=== PATIENT | female | born 1935 | race Caucasian/White ===

== ENCOUNTER 2016-07-20 01:55 | Observation (INO) | payer MEDICARE ==
--- NOTE | ~2016-07-20 | DS ---
Discharge Summary [facility] [address] [place]. [address] NAME: BILLY MEAD : 31 STATUS : DIS Shaheed PAT#: [id number] AGE: 81 ADM/REG DATE : 07/20/16 MR#: [id number] REPORT SERV DATE: 07/21/16 DICTATED BY: MERE THORNTON DATE: 07/20/16 REPORT STATUS : Draft TRANSCRIBED BY: MODL DATE: 07/20/16 ADMISSION DATE: 07/20/2016 DISCHARGE DATE: 07/20/2016 DISCHARGE DIAGNOSES: 1. Medication overdose with Ambien and Phenergan. 2. Depression and anxiety. 3. Opioid dependence for chronic back pain. 4. Denies any suicide ideation or plans. HISTORY OF PRESENT ILLNESS: This is an 81-year-old female patient, who has a caregiver at home and then the family support at home. She was brought to the hospital with extreme somnolence after they found her extra Ambien was gone. Please see dictated H and P. HOSPITAL COURSE: She was admitted to hospital with observation for the medication overdose. After the hydration, she came back to her normal. Her caregiver is here at the bedside and explained the patient that she was taking extra Ambien and Phenergan at the same time at home. Her medication is under care with the caregiver and family. They are trying to limit her Ambien use only daily after this time. Now, she is oriented x3. She is coherent, and there is no neurologic focal deficit. The patient will be discharged to home with continuing all her home medications, but Ambien is really as needed and Phenergan is replaced with Zofran. I explained the patient about this change of medication. Followup plan with Dr. Cristino Davey and they voiced understanding. DISPOSITION: The patient is discharged to home with a caregiver with a change of Phenergan to Zofran, but continuing other home medications including MS Contin and Cymbalta. EKL/ORIONL Mere Thornton M.D. / [id number] CC: Mehran Kang Jr, MD R. Henry Williams, M.D.
--- NOTE | ~2016-07-20 | HP ---
History And Physical [facility] [address] [place]. [address] NAME: BILLY MEAD : 31 STATUS : ADM Shaheed PAT#: [id number] AGE: 81 ADM/REG DATE : 07/20/16 MR#: [id number] REPORT SERV DATE: 07/20/16 DICTATED BY: HERIBERTO COHEN DATE: 07/20/16 REPORT STATUS : Draft TRANSCRIBED BY: MODL DATE: 07/20/16 DATE OF ADMISSION: 07/20/2016 CHIEF COMPLAINT: Altered mental status and somnolence. HISTORY OF PRESENT ILLNESS: This is an 81-year-old female with a history of depression and anxiety, who had recently lost her spouse who was found on her bed today very somnolent and hard to arouse and awake. Beside, she had an open bottle of Ambien as well as Phenergan and some of the pills were on the bed. She had apparently taken an unknown amount. The caregiver found her like this and called EMS who brought her to the emergency room at [facility]. In the emergency room, she continued to be very somnolent, although her vitals were stable. She was barely arousable with mumble replies. CT scan of the brain done in the emergency room did not show any acute intracranial abnormality. EKG was normal sinus at a rate of [address] elevations. Hospitalist Service is asked to admit the patient for further evaluation and management. At the time of my evaluation, she was more awake, but able to converse was oriented to time and person. She denied any chest pain, palpitations, or orthopnea. She had no cough, hemoptysis, night sweats, or weight loss. She has not had any recent falls or loss of consciousness. No history of recent fevers, chills, nausea, vomiting, and diarrhea. She had not had any hematemesis, hematochezia or hematuria. She denied any dysuria. No history of recent travel or exposures other than those mentioned above. PAST MEDICAL HISTORY: Significant for history of peptic ulcer disease, gastroesophageal reflux disease, history of postherpetic neuralgia, glaucoma, hypertension, depression, and anxiety. SOCIAL HISTORY: She does not smoke, drink, or use recreational drugs according to her. FAMILY HISTORY: Noncontributory. MEDICATIONS: At home are not available at this time. The caregiver will be returning home to bring her medicines with her. technical operations manager is waiting for a call back or for her to bring medicines. REVIEW OF SYSTEMS: As in history of present illness. All other systems were reviewed in detail and quite unremarkable. PHYSICAL EXAMINATION: GENERAL: This is a pleasant 81-year-old, not in any acute distress. HEENT: Her head is atraumatic, normocephalic. She is alert, awake, oriented to time, place, and person. Her pupils are equal, reacting to light and accommodating. External ocular muscles are intact. Membranes are moist and pink. Sclerae nonicteric. History And Physical [address] [address] NAME: BILLY MEAD : 33 STATUS : ADM Shaheed PAT#: [id number] AGE: 81 ADM/REG DATE : 07/20/16 MR#: [id number] REPORT SERV DATE: 07/20/16 DICTATED BY: HERIBERTO COHEN DATE: 07/20/16 REPORT STATUS : Draft TRANSCRIBED BY: HAYLEY DATE: 07/20/16 NECK: Supple with no jugular venous distention, lymphadenopathy, or thyromegaly. LUNGS: Clear to auscultation with no wheezes, rubs, or crackles. HEART: Heart sounds were regular with no murmurs, rubs, or gallops. ABDOMEN: Soft, nontender. Bowel sounds are present. There was no organomegaly. EXTREMITIES: Showed no cyanosis, clubbing, or edema. NEURO: At the time of my evaluation, she was grossly intact. She had some mild sluggishness, otherwise, she was recovering from her medication overdose rather well. Her vital signs today showed a temperature of 97.8, pulse 67, respirations 17 per minute, blood pressure was 149/74 oxygen saturations were 96% on 2 L of oxygen. LABORATORY DATA: Reviewed on the [employer] system showed normal CMP with a blood glucose of 95, calcium was 8.2. The rest of the chemistry looked normal as well. Serum drug screen was unremarkable. CBC was essentially within normal limits as well. Analysis did not reveal any gross abnormality. Urine drug screen was positive for cannabinoids and opiates today. Chest x-ray films and CT of the brain were reviewed by me on the PACS today and interpreted by me. Per my interpretation, there is increased vascular congestion in the chest x-ray without any lobar consolidations or pleural effusions. There is a spine hardware seen. CT of the brain did not reveal any acute intracranial abnormalities at this time. A 12-lead EKG done in emergency room was reviewed and interpreted by me. There is normal sinus rhythm with a rate of [address] elevations. There is right bundle- branch block. IMPRESSION: 1. Medication overdose. 2. Substance abuse. 3. Hypertension. 4. Depression and anxiety. 5. Peptic ulcer disease. 6. Gastroesophageal reflux disease. 7. Glaucoma. 8. History of postherpetic neuralgia. 9. Right bundle-branch block. PLAN: We will admit the patient to the Hospitalist Service with telemetry for close monitoring for a 24-hour observation period. Initially, we thought she might have to go to an intermediate care unit, but at the time of my evaluation, she has recovered, and more awake and alert. I think she would do well in telemetry bed. We will continue cardiac monitoring, repeat chemistries and CBCs in the morning, as well. We will replace any electrolytes that need to be replaced. As mentioned above, her caregiver will be going back to get her medication list, which we will review and continue. We will start her on IV fluids for maintenance. We will also consult Dr. Hicks our psychiatrist to evaluate her in the morning for depression. We will also place her on unfractionated heparin for DVT prophylaxis while here. When I brought up the urine drug screen result and told her she was positive for cannabinoids. The patient did agree or admit to using marijuana. She was reluctant to this, but also mention that she had last used it about a week ago. I have discussed the History And Physical [address] [place]. [address] NAME: BILLY MEAD : 31 STATUS : ADM Shaheed PAT#: [id number] AGE: 81 ADM/REG DATE : 07/20/16 MR#: [id number] REPORT SERV DATE: 07/20/16 DICTATED BY: HERIBERTO COHEN DATE: 07/20/16 REPORT STATUS : Draft TRANSCRIBED BY: MODL DATE: 07/20/16 above plans with the patient. She understands and agrees with the above plan. Hospitalist Service will be following her during her stay here. /HAYLEY Heriberto Cohen M.D. / [id number] CC: Mehran Kang Jr, MD
[~2016-07-20 01:55] MED LIST: ALLER-CHLOR4 MG OR; AMB5 PO; ANTIHISTAMINE OTC PO; ASAB PO; AUG875 PO; BIST PO; BLU EMU TOP; BLUE EMU TOP; CARASPUDL PO; CENTRUM TAB1 TAB PO; CHLOR-PHENIR4 MG PO; CHLOR-TRIMETON4 MG PO; CHLORPHEN4 MG PO; CRESTOR10 PO; CYANO1000T PO; CYMBALTA30; CYMBALTA30 PO; CYMBALTA60 PO; DIL2TAB PO; DSS PO; DULCOLAX PO; DURA50 TOP; GAS-X80 MG PO; HALF81 PO; I10 PO; I20 PO; INDERAL PO; K-TABS10 MEQ PO; KDUR10 PO; KLOR-CON 1010 MEQ PO; LIDODERM T; LIPITOR10 PO; LOP25 PO; LORTAB10 PO; LYRICA75 PO; MACROBID PO; MOBIC15 MG PO; MSCONT15 PO; MSCONTIN PO; MUCINEX D1 TAB OR; MUCINEX DM1 TAB PO; MUCINEX1200 MG PO; MULTIPLE VIT PO; MULTIVIT/MIN PO; MULTIVITAMI1 PO; MYLANTA GAS125 M1 PO; MYLANTA ULTR1 TAB PO; MYLUD PO; NEUR300 PO; NORCO1 TAB PO; OS500+D PO; P10 PO; P20 PO; P5 PO; PRILO PO; PRIN10 PO; PROTONIX PO; RESTASIS OPH; ROXICODONE15 MG PO; SENOKOT PO; SENOKOTS PO; SENTAB PO; SPIRO25 PO; T PO; TUMS PO; TUMSROLL; TUMSROLL PO; V5 PO; VITAMIN B-121000 MC1 SL; XALAT OPH; ZOFRAN4 PO; [UNRECOGNIZED DRUG - CODE] TOP; [UNRECOGNIZED DRUG - OTHER] OR
[2016-07-20 02:02] LABS: BASOPHILS 0.3 %; BASOPHILS ABSOLUTE 0.02 10/3/uL (0.0-0.16); EOSINOPHILS 4.4 %; EOSINOPHILS ABSOLUTE 0.27 10/3/uL (0.0-0.53); HEMATOCRIT 39.3 % (36.0-48.0); HEMOGLOBIN 12.9 g/dL (12.0-16.0); IMMATURE GRANULOCYTES 0.2 %; IMMATURE GRANULOCYTES ABSOLUTE 0.01 10/3/uL (0.0-0.11); LYMPHOCYTES 31.4 %; LYMPHOCYTES ABSOLUTE 1.91 10/3/uL (0.67-4.30); MANUAL DIFF NO %; MEAN CORPUS HGB CONC 32.8 g/dL (32.0-36.0); MEAN CORPUSCULAR HEMOGLOB 29.4 pg (26.0-34.0); MEAN CORPUSCULAR VOLUME 89.5 fL (80-100); MEAN PLATELET VOLUME 9.4 fL (9.2-13.0); MONOCYTES 12.3 %; MONOCYTES ABSOLUTE 0.75 10/3/uL (0.21-1.20); NEUTROPHILS 51.4 %; NEUTROPHILS ABSOLUTE 3.12 10/3/uL (2.02-8.40); PLATELET COUNT 236 10/3/uL (150-400); RBC DISTRIBUTION WIDTH 15.1 % (12.0-16.0); RED CELL COUNT 4.39 10/6/uL (4.0-5.6); WHITE BLOOD CELLS 6.1 10/3/uL (4.5-10.5)
[2016-07-20 02:18] LABS: ASCORBIC ACID (UR NOT ORDER) 40 (NEG); BILIRUBIN, URINE NEGATIVE (NEG); ER URINALYSIS TAT 0 Hrs 12 Mins; KETONE, URINE NEGATIVE (NEG); LEUKOCYTE ESTERASE(NOT OR NEG (NEG); NITRITE (URINE) NEG (NEG); WBC (NOT ORDERED) (RFLEX) < 1 (0-5)
[2016-07-20 02:24] LABS: ALKALINE PHOSPHATASE 103 U/L (45-117); CHLORIDE, SERUM 105 MMOL/L (96-112); CO2 (CARBON DIOXIDE) 24 MMOL/L (24-34); CREATININE 0.88 MG/DL (0.55-1.02); GFR AFRICAN AMERICAN 70 ML/MIN (>=60); GFR NON AFRICAN AMERICAN 61 ML/MIN (>=60); GLUCOSE, SERUM 95 MG/DL (60-99); POTASSIUM, SERUM 4.3 MMOL/L (3.5-5.3); SGPT(ALT) 15 U/L (5-65); SODIUM, SERUM 142 MMOL/L (135-148); TOTAL BILIRUBIN 0.4 MG/DL (0-1.2); TOTAL PROTEIN 7.1 G/DL (6.0-8.5)
[2016-07-20 02:26] LABS: A/G RATIO 0.7 (0.7-1.9); ACETAMINOPHEN LEVEL (TYLENOL) < 2.0 MCG/ML (10.0-20.0); ALCOHOL < 10 MG/DL (0); BUN (BLOOD UREA NITROGEN) 11 MG/DL (6-23); CALCIUM, SERUM 8.2 MG/DL (8.5-10.4); GLOBULIN 4.1 G/DL (2.5-4.1); SALICYLATE < 1.7 MG/DL (-); SGOT(AST) 21 U/L (5-40)
[2016-07-20 02:31] LABS: BAND NEUTROPHILS 2 %; BASOPHILS 1 %; BASOPHILS ABSOLUTE (CALC) 0.06 10/3/uL (0.0-0.16); EOSINOPHILS 6 %; EOSINOPHILS ABSOLUTE (CALC) 0.37 10/3/uL (0.0-0.53); ER DIFF TAT 0 Hrs 35 Mins; LYMPHOCYTES 30 %; LYMPHOCYTES ABSOLUTE (CALC) 1.83 10/3/uL (0.67-4.30); MONOCYTES 8 %; MONOCYTES ABSOLUTE (CALC) 0.49 10/3/uL (0.21-1.20); NEUTROPHILS ABSOLUTE (CALC) 3.36 10/3/uL (2.02-8.40); PLATELET ESTIMATE ADQ (ADEQUATE); RBC MORPHOLOGY NORM (NORMAL); SEGMENTED NEUTROPHIL (0) 53 %; TOTAL NUCLEATED CELLS 100
[2016-07-20 02:33] LABS: AMPHETAMINES (NOT ORD) NEG (NEG); BARBITURATES (NOT ORDERED NEG (NEG); BENZODIAZEPINES (NOT ORD) NEG (NEG); CANNABINOIDS (THC) POS (NEG); COCAINE (NOT ORDERED) NEG (NEG); OPIATES POS (NEG); PHENCYCLIDINE(PCP) NEG (NEG); TRICYCLICS NEG (NEG)
[2016-07-20] MEDS ORDERED: NEUR100 PO (04:41)
[2016-07-20] MEDS ORDERED: PR12.5 (04:43)
[2016-07-20 08:42] LABS: BASOPHILS 0.3 %; BASOPHILS ABSOLUTE 0.02 10/3/uL (0.0-0.16); EOSINOPHILS 4.5 %; HEMATOCRIT 38.5 % (36.0-48.0); HEMOGLOBIN 12.6 g/dL (12.0-16.0); IMMATURE GRANULOCYTES 0.1 %; IMMATURE GRANULOCYTES ABSOLUTE 0.01 10/3/uL (0.0-0.11); LYMPHOCYTES 33.6 %; LYMPHOCYTES ABSOLUTE 2.26 10/3/uL (0.67-4.30); MEAN CORPUS HGB CONC 32.7 g/dL (32.0-36.0); MEAN CORPUSCULAR HEMOGLOB 28.7 pg (26.0-34.0); MEAN CORPUSCULAR VOLUME 87.7 fL (80-100); MEAN PLATELET VOLUME 9.3 fL (9.2-13.0); MONOCYTES 10.9 %; MONOCYTES ABSOLUTE 0.73 10/3/uL (0.21-1.20); NEUTROPHILS 50.6 %; PLATELET COUNT 256 10/3/uL (150-400); RED CELL COUNT 4.39 10/6/uL (4.0-5.6); WHITE BLOOD CELLS 6.7 10/3/uL (4.5-10.5)
[2016-07-20 08:48] LABS: ER CBC TAT 0 Hrs 07 MinsNP; MANUAL DIFF NO %
[2016-07-20 09:00] LABS: BUN (BLOOD UREA NITROGEN) 11 MG/DL (6-23); CALCIUM, SERUM 8.5 MG/DL (8.5-10.4); CHLORIDE, SERUM 106 MMOL/L (96-112); CO2 (CARBON DIOXIDE) 28 MMOL/L (24-34); CREATININE 0.68 MG/DL (0.55-1.02); GFR AFRICAN AMERICAN 94 ML/MIN (>=60); GFR NON AFRICAN AMERICAN 81 ML/MIN (>=60); GLUCOSE, SERUM 92 MG/DL (60-99); POTASSIUM, SERUM 3.7 MMOL/L (3.5-5.3); SODIUM, SERUM 143 MMOL/L (135-148)
[2016-07-20 09:01] LABS: PHOSPHORUS, SERUM 3.2 MG/DL (2.5-4.5)
[2016-07-20] MEDS ORDERED: ZOFRAN4 PO (11:30)
== END 2016-07-20 11:50 | disposition home or self-care (01) ==
LOC: ER 01:55 → CDU1 06:07 → CDU2 06:32
PROVIDERS: Emergency Medicine; Internal Medicine Pulmonary Disease
DX: T42.6X1A Poisoning by other antiepileptic and sedative-hypnotic drugs, accidental (unintentional), initial encounter (principal); F32.9 Major depressive disorder, single episode, unspecified; F41.9 Anxiety disorder, unspecified; K21.9 Gastro-esophageal reflux disease without esophagitis; B02.29 Other postherpetic nervous system involvement; I10 Essential (primary) hypertension; I45.10 Unspecified right bundle-branch block; F12.20 Cannabis dependence, uncomplicated; G89.29 Other chronic pain; M54.9 Dorsalgia, unspecified; Z87.11 Personal history of peptic ulcer disease; Z88.2 Allergy status to sulfonamides; Z79.891 Long term (current) use of opiate analgesic; Z88.8 Allergy status to other drugs, medicaments and biological substances; Z79.899 Other long term (current) drug therapy
CPT/HCPCS: 36600; 70450; 71010; 80048; 80053; 80305; 80307; 81001; 82330; 82803; 82947; 82962; 83605; 83735; 84100; 84132; 84295; 85014; 85025; 87040; 93005; 96372; 99285; A9270-GY; G0378